=== PATIENT | male | born 1985 | race Caucasian/White ===

== ENCOUNTER 2021-08-04 10:39 | Outpatient (CLI) | payer OTHER | END 2021-08-04 10:40 | disposition home or self-care (01) | LOC: DI 10:39 | DX: R07.89 Other chest pain (principal); I51.7 Cardiomegaly | CPT/HCPCS: 93306 ==

== ENCOUNTER 2022-10-07 14:29 | Outpatient (CLI) | payer OTHER | END 2022-10-07 14:30 | disposition home or self-care (01) | LOC: SC 14:29 | PROVIDERS: ATTEND Nurse Practitioner Family | DX: R06.83 Snoring (principal) | CPT/HCPCS: 95806 ==

== ENCOUNTER 2022-10-14 08:27 | Outpatient (CLI) | payer OTHER | END 2022-10-14 08:28 | disposition home or self-care (01) | LOC: SC 08:27 | PROVIDERS: ATTEND Nurse Practitioner Family | DX: R09.02 Hypoxemia (principal) | CPT/HCPCS: 95806 ==